=== PATIENT | female | born 1995 | race Caucasian/White ===

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

== ENCOUNTER 2017-03-28 19:26 | Emergency (ER) | payer MEDICAID ==
[~2017-03-28] VITALS: Ht 157.5 cm; Wt 59.0 kg
[~2017-03-28 19:26] MED LIST changes: +MACROBID100 M3 PO
[2017-03-28 19:45] LABS: URINE BILIRUBIN - DIPSTICK NEGATIVE (NEG); URINE BLOOD SMALL (NEG)
[2017-03-28] MEDS ORDERED: BACTRIM DS 8001 TA1 PO (20:25)
--- NOTE | 2017-03-28 20:26 | Urgent Treatment Center Report ---
History of Present Issue Date/Time Seen by Provider 03/28/172011 Visit Reason Pt arrived:Walked Presenting Problem:PT C/O BURNING AND PAIN WITH URINATION ALONG WITH URGENCY X3 DAYS Location if Accident: Onset of symptoms date/time:/ or onset unknown for:MEDICAL HX UNKNOWN Have you (or family members/close friends) recently traveled outside the [place]? N If Yes, where/when: Have you had exposure to infectious disease within the past month? TB? Other? Specify: Patient state that she has been having pain and burning with urination along with freqency and urgency for about 3 days states that she gets that urge to go to the bathroom and she has to go right then. States that she then has the burning pain and feeling of pressure in her private area ALLERGIES Coded Allergies: No Known Allergies (11/22/15) Home Medications Active Scripts Amoxicillin/Potassium Clav (Augmentin 875-125 Tablet) 1 EACH PO BID #20 TAB Prov: 11/22/15 NITROFURANTOIN MONOHYD/M-CRYST (Macrobid 100 MG Capsule) 100 MG PO BID #10 CAP Prov: 09/22/16 History Medical History General CAD? No Angina: No [place]: No Hypertension? No Hyperlipidemia? No CHF? No DVT? No PE? No COPD? No Asthma? Yes Anemia? No GERD? No Gastric ulcers? No GI Bleed? No Hernia? No Thyroid Problems? No Hypothyroidism? No CVA? No Seizures? No Diabetes? No Renal Insuffiency? No UTI? No Stones? No BPH? No GB Disease: No Nephritic Syndrome? No Asplenia? No Hepatitis? No Sickle Cell Disease? No Arthritis? No Migraines? No Cataracts? No Glaucoma? No MRSA? No HIV? No TB? No Anxiety? No Depression? Yes Cancer? No More? No Immunization HX DT/Tetanus 1-4 YRS Surgical Hx Previous Surgery?Y ORAL PROCEDURE Social History Smoking Hx Smoker: Current Every Day Smoker Tobacco: Yes Type Cigarettes Alcohol Alcohol: No Review of Systems All Other Systems Reviewed and Negative Genitourinary dysuria, frequency, hematuria, pain. Physical Exam Vital Signs Vital Signs Date Time Temp Pulse Resp B/P Pulse O2 O2 Flow FiO2 Ox Delivery Rate 03/28 1940 97.9 79 16 131/88 98 General Appearance normal appearance, WD/WN, no apparent distress Respiratory Status Yes: trachea midline, chest symmetrical, non tender chest. No: respiratory distress. Cardiovascular normal exam, regular rate/rhythm, no peripheral edema Neurologic alert, enchilada maker II-XII nml as tested, normal exam, no motor/sensory deficits, oriented x 3 Medical Decision Making LABS/Meds/Orders Pt receiving controlled substance in ED? No Results/Orders Laboratory Tests 03/28/171938: Urine Color YELLOW, Urine Appearance CLEAR, Urine pH 6.0, Ur Specific [place] >= 1.030, Urine Protein NEGATIVE, Urine Ketones NEGATIVE, Urine Blood SMALL, Urine Nitrate NEGATIVE, Urine Bilirubin NEGATIVE, Urine Urobilinogen 0.2, Ur Leukocyte Esterase MODERATE, Urine Glucose NEGATIVE Current Medication Orders Sig/Jaden Start time Last Medication Dose Route Stop Time Status Admin Ceftriaxone Sodium 1 GM ONCE ONE 03/28 2030 AC IM 03/28 2031 Lidocaine HCl 0 ONCE ONE 03/28 2030 AC IM 03/28 2031 Lidocaine HCl 0 .STK-MED ONE 03/28 2022 DC .ROUTE Ceftriaxone Sodium 0 .STK-MED ONE 03/28 2021 DC .ROUTE Orders Procedure Date/time Status [facility] URINE DIPSTICK 03/28 1939 Complete Departure Departure Time of Disposition 2022 Disposition DC Home or Self Care(routine) Clinical Impression Primary Impression: UTI (urinary tract infection) Qualifiers: Urinary tract infection type: site unspecified Hematuria presence: with hematuria Qualified Code: N39.0 - Urinary tract infection, site not specified Condition STABLE Referrals PATRICA BARFIELD (Family) Patient Instructions DI for Urinary Tract Infection (UTI), Urinary Tract Infection Additional Instructions Drink plenty of fluids Follow up with family doctor Return if needed Take medication as prescribed and take medication with food Discharge Counseling Counseled pt/family regarding diagnosis, test results, medications/RX, home care, follow up needs Prescriptions Current Visit Scripts SULFAMETHOXAZOLE W/TRIMETHOPRI (Bactrim Ds Tab) 1 TABLET PO BID #20 TAB at 202
[2017-03-28 20:44] VITALS: BP 131/88
== END 2017-03-28 20:46 | disposition home or self-care (01) ==
LOC: UTC 19:26
PROVIDERS: Nurse Practitioner
DX: N39.0 Urinary tract infection, site not specified (principal); F17.210 Nicotine dependence, cigarettes, uncomplicated

== ENCOUNTER 2017-06-14 11:04 | Emergency (ER) | payer MEDICAID ==
[~2017-06-14] VITALS: Ht 157.5 cm; Wt 61.2 kg
[~2017-06-14 11:04] MED LIST changes: +BACTRIM DS 8001 TA1 PO
--- OUTSIDE RECORDS SUMMARY | 2017-06-14 11:10 | External Medical Summary Rpt | CCD ---
Author Author [employer] Organization [employer] Address Unknown Phone Unavailable Purpose Continuity of Care Document - through 2016
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
--- OUTSIDE RECORDS SUMMARY | 2017-06-14 11:11 | External Medical Summary Rpt | CCD ---
Author Author , CARMEN MORALES Address Unknown Phone [email or web address] Immunization Name Date Rout CVX Reac Dose Comm Prov Is Faci e tion ent ider Refu lity Give sed n HPV4 03-0 Intr 62 0.5 Hist D202 No D202 9-20 amus mL oric 15 15 (Gar 17 cula al dasi r Info l) rmat ion - Sour ce Unsp ecif ied
--- OUTSIDE RECORDS SUMMARY | 2017-06-14 11:11 | External Medical Summary Rpt ---
Author Author CARMEN Hall, CARMEN Hall Organization [employer] Address Unknown Phone Unavailable
--- OUTSIDE RECORDS SUMMARY | 2017-06-14 11:11 | External Medical Summary Rpt | CCD ---
Author Author , CARMEN MORALES Address Unknown Phone [email or web address] Immunization Name Date Rout CVX Reac Dose Comm Prov Is Faci e tion ent ider Refu lity Give sed n HPV4 03-0 Intr 62 0.5 Hist D202 No D202 9-20 amus mL oric 15 15 (Gar 17 cula al dasi r Info l) rmat ion - Sour ce Unsp ecif ied
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
[2017-06-14 12:46] LABS: UTC STREP SCREEN NOT DETECTED (NOTDETECTED)
[2017-06-14 12:53] VITALS: BP 157/87
== END 2017-06-14 12:53 | disposition home or self-care (01) ==
LOC: UTC 11:04
PROVIDERS: Nurse Practitioner Family
DX: J06.9 Acute upper respiratory infection, unspecified (principal); J45.909 Unspecified asthma, uncomplicated